=== PATIENT | female | born 1960 | race Caucasian/White ===

== ENCOUNTER 2021-03-01 10:03 | Emergency (ER) | payer BC ==
[2021-03-01] MEDS ORDERED: Nitroglycerin 0.4 MG Tab.SL SL ONE (10:46)
--- NOTE | 2021-03-01 10:54 | EDM.PDOC ---
ED HPI GENERAL MEDICAL PROBLEM - General Chief Complaint: Chest Pain Stated Complaint: PAIN RIGHT SIDE/JAW/ARM Time Seen by Provider: 03/01/21 10:30 Source of Information: Reports: Patient History Limitations: Reports: No Limitations - History of Present Illness INITIAL COMMENTS - FREE TEXT/NARRATIVE: 60-year-old female who has been very active recently, swimming a lot, woke up this morning at 4 AM with some left-sided chest discomfort radiating into the left arm and left neck and jaw. No shortness of breath, no pleuritic pain, no nausea or vomiting, no diaphoresis. 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 Her angiograms have otherwise been normal, she has never needed revascularization. She is not on anticoagulation. She took a nitroglycerin this morning and it did seem to help some so she went back to sleep and when the discomfort was still there when she woke up she decided to be checked. She is very stable, calm, in no distress. EKG was done on arrival which is completely normal. She cannot reproduce the pain with movement or breathing. Onset: Unknown/Unsure (Woke with symptoms at 4 AM) Duration: Hour(s): (At least 7 hours) Location: Reports: Chest, Upper Extremity, Left Associated Symptoms: Reports: No Other Symptoms Right Arm Pain Score (Numeric/FACES): 3 - Related Data Allergies Allergy/AdvReac Type Severity Reaction Status Date / Time morphine Allergy Anxiety Verified 03/01/21 10:25 Home Meds: Home Meds Citalopram Hydrobromide [Celexa] 20 mg PO BEDTIME 02/22/14 [History] Losartan [Cozaar] 25 mg PO BEDTIME 03/01/21 [History] Past Medical History HEENT History: Reports: None Cardiovascular History: Reports: Other (See Below) Other Cardiovascular History: SCAD Respiratory History: Reports: Sleep Apnea Other Respiratory History: c-pap occ used Gastrointestinal History: Reports: GERD Genitourinary History: Reports: Renal Calculus 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: Musculoskeletal History: Reports: Fracture Neurological History: Reports: None Psychiatric History: Reports: Depression Endocrine/Metabolic History: Reports: Other (See Below) Other Endocrine/Metabolic History: enlarged thyroid Hematologic History: Reports: Anemia Immunologic History: Reports: None Oncologic (Cancer) History: Reports: None Dermatologic History: Reports: None - Infectious Disease History Infectious Disease History: Reports: Chicken Pox, Influenza, Other (See Below) Other Infectious Disease History: hand foot mouth - Past Surgical History HEENT Surgical History: Reports: None Cardiovascular Surgical History: Reports: Percutaneous Transluminal Angioplasty GI Surgical History: Reports: Colonoscopy Female Surgical History: Reports: Section Other Female Surgeries/Procedures: x3 Social & Family History - Tobacco Use Tobacco Use Status *Q: Former Tobacco User Used Tobacco, but Quit: Yes Month/Year Tobacco Last Used: for about 3 years - Caffeine Use Caffeine Use: Reports: Coffee - Recreational Drug Use Recreational Drug Use: No ED ROS GENERAL - Review of Systems Review Of Systems: See Below Constitutional: Denies: Fever, Chills, Malaise HEENT: Reports: Other (Dull ache in her left jaw) Respiratory: Denies: Shortness of Breath, Pleuritic Chest Pain, Cough Cardiovascular: Reports: Chest Pain (Pressure on the left side) GI/Abdominal: Reports: No Symptoms Musculoskeletal: Reports: Other (Ache in her left shoulder and left arm) Skin: Reports: No Symptoms Neurological: Reports: No Symptoms ED EXAM, GENERAL - Physical Exam Exam: See Below Exam Limited By: No Limitations General Appearance: Alert, No Apparent Distress Eye Exam: Bilateral Eye: Normal Inspection Head: Atraumatic Neck: Supple, Non-Tender Respiratory/Chest: Lungs Clear, Other (I could not reproduce pain with palpation of the chest or shoulder) Cardiovascular: Regular Rate, Rhythm GI/Abdominal: Soft, Non-Tender Extremities: Normal Inspection Neurological: Alert, Oriented Psychiatric: Normal Affect, Normal Mood #1 Interpretation EKG Date: 03/01/21 Rhythm: NSR Course - Vital Signs Last Recorded V/S: Last Vital Signs Temp 97.3 F 03/01/21 10:32 Pulse 52 L 03/01/21 10:45 Resp 16 03/01/21 10:45 BP 150/81 H 03/01/21 11:00 Pulse Ox 96 03/01/21 10:45 - Orders/Labs/Meds Orders: Active Orders 24 hr Category Date Time Status EKG 12 Lead [EK] Routine Ther 03/01/21 10:46 Ordered Labs: Laboratory Tests 03/01/21 Range/Units 10:55 Troponin I < 0.017 (0.000-0.056) ng/mL Meds: Medications Discontinued Medications Generic Name Dose Route Start Last Admin Trade Name Jeremias PRN Reason Stop Dose Admin Ibuprofen 600 mg 03/01/21 11:21 Ibuprofen 600 Mg Tab PO 03/01/21 11:22 ONETIME ONE Nitroglycerin 0.4 mg 03/01/21 10:46 03/01/21 11:00 Nitroglycerin 0.4 Mg Tab.Sl SL 03/01/21 10:47 0.4 mg ONETIME ONE Administration - Re-Assessments/Exams Free Text/Narrative Re-Assessment/Exam: 03/01/21 10:53 EKG on arrival was completely normal. I will give her 1 more sublingual nitroglycerin to see if it has any effect, and a troponin was drawn. 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 03/01/21 11:37 The sublingual nitroglycerin had no significant effect, she just continue to have some mild posterior neck pain and left shoulder pain. Troponin returned 0. I reassured her that this does not appear to be cardiac, she is going to take some naproxen twice daily along with Tylenol, increase activity as tolerated and return if worsening. Departure - Departure Time of Disposition: 11:49 Disposition: Home, Self-Care 01 Clinical Impression: Atypical chest pain, Posterior neck pain Left shoulder pain Qualifiers: Chronicity: acute Qualified Code(s): M25.512 - Pain in left shoulder - Discharge Information Instructions: Nonspecific Chest Pain, Adult Referrals: PCP,None [Primary Care Provider] - Forms: ED Department Discharge Care Plan Goals: Try some [id number] naproxen as discussed, add Tylenol if needed. Increase activity as tolerated and return anytime if symptoms worsen or you develop other concerns. Sepsis Event Note (ED) - Evaluation Sepsis Screening Result: No Definite Risk - Focused Exam Vital Signs: Vital Signs Temp Pulse Resp BP BP Pulse Ox 03/01/21 11:00 150/81 H 03/01/21 10:45 52 L 16 150/81 H 96 03/01/21 10:32 97.3 F 14 163/81 H 96 03/01/21 10:17 97.3 F 14 163/81 H 96 - My Orders Last 24 Hours: My Active Orders 03/01/21 10:46 EKG 12 Lead [EK] Routine - Assessment/Plan Last 24 Hours: My Active Orders 03/01/21 10:46 EKG 12 Lead [EK] Routine
[2021-03-01] MEDS ORDERED: Ibuprofen 600 MG Tab PO ONE (11:21)
== END 2021-03-01 11:56 | disposition home or self-care (01) ==
LOC: JP.ED 10:03
DX: R07.89 Other chest pain (principal); M25.512 Pain in left shoulder; M54.2 Cervicalgia; Z79.899 Other long term (current) drug therapy; Z88.5 Allergy status to narcotic agent; Z87.891 Personal history of nicotine dependence
CPT/HCPCS: 36415; 84484; 93005; 99285; A9270